=== PATIENT | male | born 1965 | race Caucasian/White ===

== ENCOUNTER 2022-03-23 03:53 | Outpatient (CLI) | payer MEDICAID, SELFPAY ==
--- NOTE | 2022-03-23 14:00 | NS.NUTBLAN_ITS ---
Nirmal was referred for diabetes self management education. Newly dx with DM2. PMH: HTN, autoimmune disorder, Non alcoholic fatty liver disease, Gerd Nirmal has been disabled for last 4 years secondary to injury on the job. In last 12 months, has had covid twice and been on steroids for several weeks. Most recent labs taken after long period of being on steroids. Labs- brought from [facility] care A1C: 7.5%, chol: 219, LDL: 130, HDL: 69, tri DM meds: 500 mg metformin BID Diet Recall: breakfast: eggs and toast, Lunch: fish and vegetables, Dinner, chicken or fish with vegetables. Drinks 1/2 gallon milk daily - 8 cups daily providing a total of 120 g sugar in form of lactose. Nirmal overall has been eating a very healthy diet. Weight is mildly elevated but has not increased in weight recently. He has started to work again and is walking for exercise. Have concerns that recent A1C may be an error- or consequence of using steroids. Elevated blood sugars may be due to excessive amount of milk consumption. Does not drink alcohol or sweet beverages in excess. Nirmal is interested in using a continuous glucose monitor that is paired with his phone. Placed Dexcom 6 CGM today and Nirmal signed up for remote monitoring. Encouraged him to keep a diet record and to identify foods that cause blood sugar elevations. Goal is for blood sugars to be in target range(70-180 mg/dl) at least 70% of time. Using CGM for > 72 hours will provide data on glycemic management. Follow up in 72 hours by phone.
== END 2022-03-23 03:54 | disposition home or self-care (01) ==
LOC: DS 03:53
PROVIDERS: Visit Provider Dietitian, Registered
DX: E11.9 Type 2 diabetes mellitus without complications (principal); Z79.84 Long term (current) use of oral hypoglycemic drugs; Z71.3 Dietary counseling and surveillance
CPT/HCPCS: 97802

== ENCOUNTER 2022-03-31 04:19 | Outpatient (CLI) | payer MEDICAID, SELFPAY ==
--- NOTE | 2022-03-31 13:00 | NS.NUTBLAN_ITS ---
Ray returns after wearing a Dexcom 6 continuous glucose monitor. Meds: 500 mg metformin BID Ambulatory Glucose Profile for last 6 days: Average blood sugars: 157 mg/dl Time in Range (70-180): 77% of time 180-249 mg/dl: 22% no significant hypo glycemia or very high blood sugars Overall, blood sugars well controlled with diet and medications. Rays wants to be able to stop taking metformin and hope to lose weight, exercise to control DM. Reviewed diet for weight loss and encouraged 30 min exercise q day along with lower carb meal options. Encouraged limiting milk consumption. Suspect 20 lbs weight loss with put diabetes in remission as long as lower carb diet followed and exercise done on routine basis. provided Ray with 2 more Dexcom sensors for use as needed. No follow up planned at this time.
== END 2022-03-31 04:20 | disposition home or self-care (01) ==
LOC: DS 04:19
PROVIDERS: Visit Provider Dietitian, Registered
DX: E11.9 Type 2 diabetes mellitus without complications (principal); Z79.84 Long term (current) use of oral hypoglycemic drugs; Z71.3 Dietary counseling and surveillance
CPT/HCPCS: 97803

== ENCOUNTER 2022-07-13 09:51 | Outpatient (CLI) | payer MEDICAID, SELFPAY ==
--- NOTE | 2022-07-13 09:15 | DI.RAD_ITS ---
Exam(s) XR SHOULDER RT COMPLETE 2+V EXAM: XR SHOULDER RT COMPLETE 2+V CLINICAL HISTORY: RIGHT SHOULDER PAIN. TECHNIQUE: 2D digital imaging was performed. Five views. COMPARISON: No exams were available for comparison FINDINGS: BONES: No acute fracture is present. No bony destructive lesion is seen. Spurring at the inferior hu meral head. Mild spurring of the glenoid. JOINTS: No dislocation present. Mild narrowing of the glenohumeral joint. Mild spurring at the AC j oint. SOFT TISSUE: Normal. IMPRESSION: Moderate degenerative changes of the glenohumeral joint. DATA REPOSITORY: RADIATION DOSE DELIVERED:
== END 2022-07-13 09:52 | disposition home or self-care (01) ==
LOC: DIORS 09:51
PROVIDERS: Visit Provider Student in an Organized Health Care Education/Training Program
DX: M25.511 Pain in right shoulder (principal); M19.011 Primary osteoarthritis, right shoulder
CPT/HCPCS: 73030

== ENCOUNTER 2022-08-30 13:38 | Outpatient (CLI) | payer MEDICAID, SELFPAY ==
[2022-08-30 14:09] LABS: CREATININE 1.2 mg/dL (0.70-1.30); Estimated GFR 70.98 (mL/min/1.73m2)
== END 2022-08-30 13:39 | disposition home or self-care (01) ==
LOC: LBO 13:40
PROVIDERS: Visit Provider Registered Nurse Maternal Newborn
DX: R42 Dizziness and giddiness (principal); H92.02 Otalgia, left ear; Z01.812 Encounter for preprocedural laboratory examination
CPT/HCPCS: 36415; 82565

== ENCOUNTER → 2022-09-03 01:04 | Outpatient (CLI) | payer MEDICAID, SELFPAY ==
--- NOTE | 2022-09-03 07:35 | DI.MRI_ITS ---
Exam(s) MR IAC BRAIN WO/W EXAM: MR IAC BRAIN WO/W CLINICAL HISTORY: Increased left sided otalgia, tinnitus,imbalance,H92.02,R42,H93.12 TECHNIQUE: Multiplanar multisequence MRI of the brain was performed. Both noninfused and contrast i nfused sequences were performed. IV Contrast injected was 18 cc Dotarem. COMPARISON: MR MRI Brain w/o Contrast from 03/17/2018 FINDINGS: IACS: There is an abnormal enhancing lesion in the left internal auditory canal which measures 10 by 5 millimeters. This extends to but not medial to the porous acousticus. Consistent with probable ac oustic neuroma-schwannoma. This exhibits restricted diffusion. Similar finding is not seen on the opposite-right side. No other abnormal enhancing structures in th e brain. No ring enhancing lesions. CEREBRAL PARENCHYMA: No evidence of intracranial hemorrhage, mass effect nor shift of midline structu re. No extraaxial fluid collections. Ventricles are not enlarged nor shifted. There is no significant focal signal abnormality in the cerebellar hemispheres nor within the babar, m idbrain, and thalami. There is no abnormal signal abnormality in the periventricular white matter. There are no ring enhancing lesions in the brain. There is no abnormal meningeal enhancement. PITUITARY GLAND: No mass nor parasellar abnormality. No obvious abnormality in the cavernous sinuses. FLOW VOIDS: The expected flow void are noted. No evidence of obvious aneurysm nor obvious vascular ma lformation. PARANASAL SINUSES: The visualized paranasal sinuses appear unremarkable. ORBITS: No obvious abnormal findings. IMPRESSION: 1. There is a 10 x 5 millimeter enhancing lesion in the left internal auditory canal. First consider ation is for acoustic neuroma-schwannoma. 2. No other abnormal findings in the brain. Stat report to referring physician's office. DATA REPOSITORY:
[2022-09-03] MEDS: Normal Saline Flush 10 ML SYR IVP (11:01)
[2022-09-03] MEDS: Gadoterate meglumine 20 ML SYRINGE 18 ML IVP (11:02)
== END ==
PROVIDERS: Visit Provider Registered Nurse Maternal Newborn
DX: H92.02 Otalgia, left ear (principal); H93.12 Tinnitus, left ear; R42 Dizziness and giddiness; H61.892 Other specified disorders of left external ear
CPT/HCPCS: 70553

== ENCOUNTER 2022-12-13 13:18 | Outpatient (CLI) | payer MEDICAID, SELFPAY ==
--- NOTE | 2022-12-13 13:15 | RT.EKG_ITS ---
APPROVED REPORT Exam: Resting ECG Reason for Exam: chest discomfort Patient Location: O HR:95 bpm ECG Measurements Heart Rate 95 AXIS ME 157 P 68 QRSd 82 QRS 62 QT 347 T 28 QTc 436 Conclusion Sinus rhythm...normal P axis, V-rate 50- 99 Normal Electrocardiogram
== END 2022-12-13 13:19 | disposition home or self-care (01) ==
LOC: DI.CM 13:18
PROVIDERS: Visit Provider Physician Assistant
DX: R07.89 Other chest pain (principal)
CPT/HCPCS: 93010

== ENCOUNTER 2022-12-13 13:51 | Emergency (ER) | payer MEDICAID, SELFPAY ==
--- NOTE | 2022-12-13 14:00 | RT.EKG_ITS ---
APPROVED REPORT Exam: Resting ECG Reason for Exam: lightheaded Patient Location: E HR:97 bpm ECG Measurements Heart Rate 97 AXIS [place] 160 P 45 QRSd 79 QRS 50 QT 338 T 23 QTc 431 Conclusion Sinus rhythm...normal P axis, V-rate 60- 99 Physician: no stemi
[2022-12-13 14:15] VITALS: BP 151/93; PULSE 105; RESP 18; TEMP 36.7; O2SAT 98
[2022-12-13 14:18] VITALS: RESP 18
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
[2022-12-13 15:42] LABS: Abs Immature Grans 0.02 10^3/uL (0.0-0.06); Absolute Basophil Count 0.06 10^3/uL (0.0-0.2); Absolute Eosinophil Count 0.13 10^3/uL (0.0-0.7); Absolute Lymphocyte Count 2.18 10^3/uL (1.2-3.4); Absolute Neutrophil Count 5.82 10^3/uL (1.2-6.7); Basophils % 0.7; Eosinophils % 1.4; HCT 46.7 % (40.0-50.0); HGB 16.4 g/dL (13.5-17.5); Immature Grans % 0.2; Lymphocytes % 24.2; MCH 31.6 pg (27.0-33.0); MCHC 35.1 % (32.0-36.0); MCV 90 fL (80-95); MPV 9.9 fL (8.0-11.0); Monocytes % 8.9; Neutrophils % 64.6; Platelet Count 235 10^3/uL (130-400); RBC 5.19 10^6/uL (4.36-5.78); RDW 11.9 % (11.8-14.1); RDW-SD 39.4 fL; WBC 9.01 10^3/uL (4.4-10.8)
[2022-12-13 15:59] LABS: ALT 64 U/L (16-63); AST 25 U/L (15-37); Albumin 4.6 g/dL (3.4-5.0); Alkaline Phosphatase 68 U/L (46-116); Anion Gap 9.4 mmol/L (3-11); BUN 13 mg/dL (7-18); Bilirubin, Total 0.6 mg/dL (0.2-1.0); CO2 28.6 mmol/L (21.0-32.0); CREATININE 1.1 mg/dL (0.70-1.30); Calcium 9.8 mg/dL (8.5-10.1); Chloride 99 mmol/L (98-107); Estimated GFR 78.79 (mL/min/1.73m2); Glucose 216 mg/dL (74-106); Sodium 137 mmol/L (136-145); Total Protein 8.3 g/dL (6.4-8.2)
[2022-12-13 16:08] LABS: NT-proBNP 21 pg/mL (<300); Troponin I < 50 ng/L (<or=60)
[2022-12-13 16:21] LABS: D-Dimer 263 ng/mlFEU (<500)
[2022-12-13 16:52] VITALS: BP 158/105; PULSE 89; RESP 16; TEMP 36.4; O2SAT 93
--- NOTE | 2022-12-13 17:30 | RT.EKG_ITS ---
APPROVED REPORT Exam: Resting ECG Reason for Exam: chest pain Patient Location: E HR:77 bpm ECG Measurements Heart Rate 77 AXIS MD 172 P 42 QRSd 73 QRS 57 QT 370 T 37 QTc 418 Conclusion Sinus rhythm...normal P axis, V-rate 60- 99. Sinus. Normal axis. No STEMI. I have reviewed and interpreted ECG and agree with software generated interpretation.
--- NOTE | 2022-12-13 17:36 | W.EDPROG ---
Date of service: 12/13/22 Time of Service: 16:00 Medical Decision Making 1600 --please see Dr. Mchugh's note for initial presentation, exam and plan. Case endorsed to follow-up on repeat troponin. 57-year-old male with a history of cardiac ablation x2 for PVCs , FARRIS, hypertension and recently diagnosed vestibular neuroma presents for 3 episodes of left-sided sharp chest pain this morning within a 10-minute period. Patient has had no symptoms while here in the emergency department other than fatigue. His blood pressure is hypertensive. He states he normally takes his lisinopril at nighttime. His work-up thus far has been unremarkable with negative troponin and D-dimer. Case endorsed to follow-up on repeat troponin and EKG. Considering his persistent fatigue, will obtain a FLUVID and chest x-ray. 1900 --repeat troponin negative. Repeat EKG unchanged. Chest x-ray negative for acute findings. Fluvid negative. Patient would like to go home. He appears in no acute distress. Disposition decision made weighing the risks and benefits of hospitalization versus outpatient treatment, the risk for further decompensation, and the patient's wishes. Advised to follow up with the primary care provider for re-evaluation. Informed his blood glucose was high at 216 and to recheck with his PCP. Advised that if his symptoms persist or worsen, he may need referral for outpatient stress test per PCP. Usual and customary return precautions given prior to discharge. Medical Records Medical records reviewed: Yes I reviewed the patient's medical records. Imaging Data Radiologic Study: Radiologist's impression: XR Chest Exam date and time: 12/13/2022 6:26 PM Age: 57 years old Clinical indication: Pain; Chest pressure TECHNIQUE: Imaging protocol: Radiologic exam of the chest. Views: 2 views. COMPARISON: CR XR SHOULDER RT COMPLETE 2+V 07/13/2022 9:35 AM FINDINGS: Lungs: Lungs are clear throughout with no mass or consolidation detected. Pleural spaces: No pneumothorax or pleural effusion detected. Heart/Mediastinum: Heart size is normal and vessel margins are sharply defined. Bones/joints: No acute osseous lesions are detected.? IMPRESSION: No acute findings. Lab Data Labs: Laboratory Tests Range/Units 12/13/22 12/13/22 12/13/22 15:26 15:26 15:26 WBC (4.4-10.8) 10^3/uL RBC (4.36-5.78) 10^6/uL Hgb (13.5-17.5) g/dL Hct (40.0-50.0) % MCV (80-95) fL MCH (27.0-33.0) pg MCHC (32.0-36.0) % RDW (11.8-14.1) % Plt Count (130-400) 10^3/uL MPV (8.0-11.0) fL Immature Gran % Neutrophils % Lymphocytes % Monocytes % Eosinophils % Basophils % Nucleated RBC % (0.0-0.3) % Absolute Neutrophils (1.2-6.7) 10^3/uL Absolute Lymphocytes (1.2-3.4) 10^3/uL Absolute Monocytes (0.1-0.8) 10^3/uL Absolute Eosinophils (0.0-0.7) 10^3/uL Absolute Basophils (0.0-0.2) 10^3/uL D-Dimer (<500) ng/mlFEU 263 Sodium (136-145) mmol/L 137 Potassium (3.5-5.1) mmol/L 4.0 Chloride (98-107) mmol/L 99 Carbon Dioxide (21.0-32.0) mmol/L 28.6 Anion Gap (3-11) mmol/L 9.4 BUN (7-18) mg/dL 13 Creatinine (0.70-1.30) mg/dL 1.1 Est GFR (CKD-EPI 2020) (mL/min/1.73m2) 78.79 Glucose (74-106) mg/dL 216 H Calcium (8.5-10.1) mg/dL 9.8 Total Bilirubin (0.2-1.0) mg/dL 0.6 AST (15-37) U/L 25 ALT (16-63) U/L 64 H Alkaline Phosphatase (46-116) U/L 68 Troponin I (<or=60) ng/L < 50 NT-Pro-B Natriuret Pep (<300) pg/mL 21 Total Protein (6.4-8.2) g/dL 8.3 H Albumin (3.4-5.0) g/dL 4.6 COVID-19 Source SARS-CoV-2 (PCR) (Negative) Influenza Type A (PCR) (Negative) Influenza Type B (PCR) (Negative) RSV (PCR) (Negative) Range/Units 12/13/22 12/13/22 12/13/22 15:26 17:34 18:21 WBC (4.4-10.8) 10^3/uL 9.01 RBC (4.36-5.78) 10^6/uL 5.19 Hgb (13.5-17.5) g/dL 16.4 Hct (40.0-50.0) % 46.7 MCV (80-95) fL 90 MCH (27.0-33.0) pg 31.6 MCHC (32.0-36.0) % 35.1 RDW (11.8-14.1) % 11.9 Plt Count (130-400) 10^3/uL 235 MPV (8.0-11.0) fL 9.9 Immature Gran % 0.2 Neutrophils % 64.6 Lymphocytes % 24.2 Monocytes % 8.9 Eosinophils % 1.4 Basophils % 0.7 Nucleated RBC % (0.0-0.3) % 0.0 Absolute Neutrophils (1.2-6.7) 10^3/uL 5.82 Absolute Lymphocytes (1.2-3.4) 10^3/uL 2.18 Absolute Monocytes (0.1-0.8) 10^3/uL 0.80 Absolute Eosinophils (0.0-0.7) 10^3/uL 0.13 Absolute Basophils (0.0-0.2) 10^3/uL 0.06 D-Dimer (<500) ng/mlFEU Sodium (136-145) mmol/L Potassium (3.5-5.1) mmol/L Chloride (98-107) mmol/L Carbon Dioxide (21.0-32.0) mmol/L Anion Gap (3-11) mmol/L BUN (7-18) mg/dL Creatinine (0.70-1.30) mg/dL Est GFR (CKD-EPI 2020) (mL/min/1.73m2) Glucose (74-106) mg/dL Calcium (8.5-10.1) mg/dL Total Bilirubin (0.2-1.0) mg/dL AST (15-37) U/L ALT (16-63) U/L Alkaline Phosphatase (46-116) U/L Troponin I (<or=60) ng/L < 50 NT-Pro-B Natriuret Pep (<300) pg/mL Total Protein (6.4-8.2) g/dL Albumin (3.4-5.0) g/dL COVID-19 Source Nasopharynx SARS-CoV-2 (PCR) (Negative) Negative Influenza Type A (PCR) (Negative) Negative Influenza Type B (PCR) (Negative) Negative RSV (PCR) (Negative) Negative ECG Data Attestation: I personally reviewed and interpreted this ECG (s) as follows: Interpretation: #1 -- rate of 97, sinus, normal axis, no stemi. #2 -- rate of 77, sinus, normal axis, no stemi. Sign Out Sign Out Data: Sign Out Comment: Chest pain, follow-up on labs and imaging, pending D-dimer Last updated by Christian Mchugh DO at 12/13/22 15:52 Discharge Plan Disposition Patient Disposition: Home Condition: Good Discharge Details Clinical Impression: Chest pain Primary Care Provider: None,None ED Provider: Mitzi Bartlett Home Meds and New Rx's Prescriptions: Continued lisinopril 20 mg tablet 20 mg PO DAILY omeprazole 20 mg capsule,delayed release(DR/EC) 20 mg PO DAILY Discharge Instructions Instructions: Chest Pain (ED) Additional Instructions: Your blood tests, EKGs and imaging today are reassuring and show no evidence of acute concerning findings. Your blood sugar was high today at 216. Please be sure to have your primary care doctor recheck your blood glucose for monitoring. Your COVID, influenza and RSV tests today are negative. Drink plenty of fluids and get plenty of rest. Call your primary care doctor's office tomorrow to schedule a follow-up appointment for reevaluation in the next week and for referral for outpatient stress test if indicated. Return immediately to the emergency department if you develop any worsening or new concerning symptoms. Discharge Data Discharge Physician: Mitzi Bartlett
[2022-12-13 17:58] LABS: Troponin I < 50 ng/L (<or=60)
--- NOTE | 2022-12-13 18:00 | DI.RAD_ITS ---
Exam(s) XR CHEST 2V PA LATERAL EXAM: XR CHEST 2V PA LATERAL CLINICAL HISTORY: chest pain, r/o acute disease. TECHNIQUE: 2D digital imaging was performed. COMPARISON: No exams were available for comparison FINDINGS: 2 views: Heart size is normal. The mediastinum is not widened. Lungs are clear. No infiltrates nor pleural effusions. Fusion plate in the lower cervical spine noted IMPRESSION: No acute pulmonary findings. DATA REPOSITORY: RADIATION DOSE DELIVERED:
--- NOTE | 2022-12-13 18:41 | DI.VRAD_ITS ---
PROCEDURE INFORMATION: Exam: XR Chest Exam date and time: 12/13/2022 6:26 PM Age: 57 years old Clinical indication: Pain; Chest pressure TECHNIQUE: Imaging protocol: Radiologic exam of the chest. Views: 2 views. COMPARISON: CR XR SHOULDER RT COMPLETE 2+V 07/13/2022 9:35 AM FINDINGS: Lungs: Lungs are clear throughout with no mass or consolidation detected. Pleural spaces: No pneumothorax or pleural effusion detected. Heart/Mediastinum: Heart size is normal and vessel margins are sharply defined. Bones/joints: No acute osseous lesions are detected. IMPRESSION: No acute findings. Dictated and Authenticated by: Maximiliano Martinez MD. Ordering:BUSHRA Cartagena MD
[2022-12-13 19:03] VITALS: BP 166/98; PULSE 89; RESP 16; TEMP 36.3; O2SAT 95
[2022-12-13 19:08] LABS: COVID-19 PCR Negative (Negative); Influenza A PCR Negative (Negative); Influenza B PCR Negative (Negative); RSV PCR Negative (Negative)
[2022-12-13 19:10] LABS: Source Nasopharynx
== END 2022-12-13 19:37 | disposition home or self-care (01) ==
PROVIDERS: Student in an Organized Health Care Education/Training Program; Emergency Provider Physician Assistant
DX: R07.89 Other chest pain (principal); I10 Essential (primary) hypertension; Z86.16 Personal history of COVID-19; Z20.822 Contact with and (suspected) exposure to COVID-19
CPT/HCPCS: 36415; 80053; 87637; 93005; 99284; 71046; 83880; 84484; 85025; 85379; 93010; 99285

== ENCOUNTER 2023-03-18 01:06 | Outpatient (CLI) | payer MEDICAID, SELFPAY ==
--- NOTE | 2023-03-18 08:30 | DI.MRI_ITS ---
Exam(s) MR IAC BRAIN WO/W EXAM: MR IAC BRAIN WO/W CLINICAL HISTORY: BENIGN NEOPLASM OF CRANIAL NERVES, SURVEILLANCE. TECHNIQUE: Multiplanar multisequence MRI of the brain and internal auditory canals was performed. CONTRAST MATERIAL: IV Contrast: 19 mL of Dotarem contrast administered. COMPARISON: MR MR IAC BRAIN WO/W from 09/03/2022 FINDINGS: VENTRICLES AND EXTRA AXIAL SPACES: Normal in size and morphology for the patient's age. HEMORRHAGE: None. CEREBRAL PARENCHYMA: No focus of restricted diffusion to suggest acute infarct. No space-occupying le daniel identified. MIDLINE SHIFT: None. BRAINSTEM/CEREBELLUM: Normal. CALVARIUM: Normal. ENHANCEMENT: No suspicious enhancement identified. VISUALIZED PARANASAL SINUSES/MASTOIDS: Clear. [place]: Normal flow void. PITUITARY GLAND: Unremarkable. IAC/CP ANGLE: There is again seen a homogeneously enhancing mass in the left internal auditory canal measuring 9 x 4 mm. It is unchanged compared to the prior examination. No right IAC masses or abnor mal enhancement is seen. The cerebellar pontine angles are unremarkable. Visualized portion of the facial nerves appear within normal limits. OTHER FINDINGS: None. IMPRESSION: 1. Stable homogeneously enhancing mass in the left internal auditory canal. Primary concern is for a n acoustic neuroma/schwannoma. 2. Otherwise unremarkable MRI of the brain. DATA REPOSITORY:
[2023-03-18 08:38] LABS: CREATININE 1.2 mg/dL (0.70-1.30); Estimated GFR 70.98 (mL/min/1.73m2)
[2023-03-18] MEDS: Gadoterate meglumine 20 ML VIAL 19 ML IVP (08:42)
[2023-03-18] MEDS: Normal Saline Flush 10 ML SYR IVP (08:42)
== END 2023-03-18 01:26 ==
LOC: DI 01:06
PROVIDERS: Visit Provider Nurse Practitioner Family
DX: C71.9 Malignant neoplasm of brain, unspecified (principal)
CPT/HCPCS: 70553; 82565

== ENCOUNTER 2023-04-14 01:12 | Outpatient (CLI) | payer MEDICAID, SELFPAY ==
[2023-04-14 16:32] LABS: HGB 15.7 g/dL (13.5-17.5); MCH 30.5 pg (27.0-33.0); MCHC 34.9 % (32.0-36.0); MCV 87 fL (80-95); MPV 9.5 fL (8.0-11.0); Platelet Count 228 10^3/uL (130-400); RBC 5.15 10^6/uL (4.36-5.78); RDW-SD 38.9 fL; WBC 7.46 10^3/uL (4.4-10.8)
[2023-04-14 16:41] LABS: ESR < 1 mm/hr (0-20)
[2023-04-14 16:55] LABS: Hemoglobin A1C 6.6 % (<5.7)
[2023-04-14 19:00] LABS: ALT 60 U/L (16-63); AST 20 U/L (15-37); Albumin 4.4 g/dL (3.4-5.0); Alkaline Phosphatase 61 U/L (46-116); Anion Gap 12.2 mmol/L (3-11); BUN 11 mg/dL (7-18); Bilirubin, Total 0.7 mg/dL (0.2-1.0); C-Reactive Protein 0.38 mg/dL (0.0-0.3); CO2 26.8 mmol/L (21.0-32.0); CREATININE 1.2 mg/dL (0.70-1.30); Calcium 9.3 mg/dL (8.5-10.1); Chloride 103 mmol/L (98-107); Estimated GFR 70.98 (mL/min/1.73m2); FREE T4 0.93 ng/dL (0.76-1.46); Glucose 115 mg/dL (74-106); Potassium 4.1 mmol/L (3.5-5.1); Sodium 142 mmol/L (136-145); TSH 1.84 uIU/mL (0.36-3.74); Total Protein 7.7 g/dL (6.4-8.2)
[2023-04-14 19:54] LABS: Vitamin B12 638 pg/mL (193-986)
[2023-04-15 20:40] LABS: Rheumatoid Factor <8.6 IU/mL (<12.0)
[2023-04-15 22:21] LABS: PSA, Screening 0.7 ng/mL (<=3.5)
[2023-04-18 10:28] LABS: Lyme Ab w Rflx to Lyme Confirm Negative (Negative)
[2023-04-18 14:22] LABS: ANA Interpretation Positive (Negative); ANA Titer Pattern 1:80 Speckled
[2023-04-20 00:46] LABS: 25-Hydroxy D Total 31 ng/mL; 25-Hydroxy D2 <4.0 ng/mL; 25-Hydroxy D3 31 ng/mL
== END 2023-04-14 01:13 | disposition home or self-care (01) ==
LOC: LBO 01:12
PROVIDERS: Visit Provider Nurse Practitioner Family
DX: R53.83 Other fatigue (principal)
CPT/HCPCS: 36415; 80053; 82306; 84153; 85027; 85652; 82607; 83036; 84439; 84443; 86038; 86140; 86431; 86618

== ENCOUNTER 2024-12-04 15:04 | Outpatient (CLI) | payer MEDICAID, SELFPAY ==
--- NOTE | 2024-12-04 13:30 | DI.RAD_ITS ---
Exam(s) XR SHOULDER LT COMPLETE 2+V EXAM: XR SHOULDER LT COMPLETE 2+V CLINICAL HISTORY: LEFT SHOULDER PAIN. TECHNIQUE: 2D digital imaging was performed of the left shoulder. Two images were obtained. Axilla ry and Grashey views were obtained. COMPARISON: CR,XR XR CHEST 2V PA LATERAL from 12/13/2022 FINDINGS: Portions of the proximal humerus are obscured by overlying battery pack. BONES: No acute fracture is present. No bony destructive lesion is seen. JOINTS: No dislocation present. There is marked narrowing of the left glenohumeral joint. The acromi oclavicular joint appears well maintained. There does appear to be and osteophyte at the inferior as pect of the head of the humerus. SOFT TISSUE: Normal. IMPRESSION: There are degenerative changes seen at the glenohumeral joint as described above. DATA REPOSITORY: RADIATION DOSE DELIVERED:
== END 2024-12-04 15:05 | disposition home or self-care (01) ==
LOC: DIORS 15:05
PROVIDERS: PCP Nurse Practitioner Family; Visit Provider Student in an Organized Health Care Education/Training Program
DX: M25.512 Pain in left shoulder (principal)
CPT/HCPCS: 73030